=== PATIENT | female | born 1980 | race African-American/Black ===

== ENCOUNTER 2024-01-27 09:30 | Emergency (ER) | payer MEDICAID ==
[~2024-01-27] VITALS: Ht 175.3 cm; Wt 91.0 kg
[2024-01-27 09:45] VITALS: O2SAT 100
[2024-01-27] MEDS ORDERED: IBUP-2029 MT (10:23)
[2024-01-27 10:39] VITALS: BP 164/73; PULSE 76; RESP 18; TEMP 98.1
== END 2024-01-27 10:40 | disposition home or self-care (01) ==
LOC: ER 09:30
DX: S83.8X1A Sprain of other specified parts of right knee, initial encounter (principal); I10 Essential (primary) hypertension; Z98.890 Other specified postprocedural states; Z88.0 Allergy status to penicillin; X58.XXXA Exposure to other specified factors, initial encounter; Y93.89 Activity, other specified; Y92.89 Other specified places as the place of occurrence of the external cause; Y99.8 Other external cause status
CPT/HCPCS: 73562; 99283

== ENCOUNTER 2024-03-25 13:09 | Emergency (ER) | payer MEDICAID ==
[~2024-03-25] VITALS: Ht 177.8 cm; Wt 85.0 kg
[~2024-03-25 13:09] MED LIST: AMLO10TA80 PO; CALC60CR TP; IBUP-2029 MT; LOSA25TA26 PO; TC1U15 TP
[2024-03-25 13:11] VITALS: TEMP 98.7; O2SAT 100
[2024-03-25] MEDS ORDERED: HYDR453.3 TP (14:52)
[2024-03-25] MEDS ORDERED: PHEN51GE9 TP (14:52)
[2024-03-25 15:12] VITALS: BP 161/70; PULSE 70; RESP 15
== END 2024-03-25 15:22 | disposition home or self-care (01) ==
LOC: ER 13:34
DX: K64.4 Residual hemorrhoidal skin tags (principal); I10 Essential (primary) hypertension; I51.9 Heart disease, unspecified; Z88.0 Allergy status to penicillin; Z79.899 Other long term (current) drug therapy
CPT/HCPCS: 99282

== ENCOUNTER 2024-07-28 03:22 | Emergency (ER) | payer MEDICAID ==
[~2024-07-28] VITALS: Ht 175.3 cm; Wt 89.0 kg
[~2024-07-28 03:22] MED LIST changes: +HYDR453.3 TP; +PHEN51GE9 TP
[2024-07-28 03:39] VITALS: O2SAT 100
[2024-07-28 04:52] LABS: CLARITY URINE CLEAR (CLEAR); COLOR URINE YELLOW (YELLOW); GLUCOSE URINE NEGATIVE (NEGATIVE); KETONES URINE NEGATIVE (NEGATIVE); LEUKOCYTE ESTERASE URINE TRACE (NEGATIVE); NITRITE URINE NEGATIVE (NEGATIVE); OCCULT BLOOD URINE NEGATIVE (NEGATIVE); PH URINE 5.5 (4.5-8.0); PROTEIN URINE TRACE (NEGATIVE); SPECIFIC GRAVITY URINE 1.012 (1.005-1.030); UROBILINOGEN URINE 0.2 E.U./dL (0.2-1.0)
[2024-07-28] MEDS ORDERED: KETOROLAC 30MG/ML VIAL IV NR (05:00)
[2024-07-28] MEDS ORDERED: FAMOTIDINE 20MG/2ML VIAL IV NR (05:00)
[2024-07-28 05:31] LABS: SQUAMOUS EPITHELIAL CELL URINE FEW /lpf (RARE/1+)
[2024-07-28 05:33] LABS: BACTERIA URINE NONE SEEN; RBC URINE 0-2 /hpf (0-2); WBC URINE 0-2 /hpf (0-2)
[2024-07-28 06:59] LABS: CARBON DIOXIDE 24 mEq/L (21-32); CHLORIDE 110 mEq/L (98-107); POTASSIUM 3.8 mEq/L (3.5-5.1); SODIUM 140 mEq/L (136-145)
[2024-07-28 07:00] LABS: CALCIUM 9.1 mg/dL (8.7-10.4)
[2024-07-28 07:04] LABS: CREATININE 0.7 mg/dL (0.6-1.0); GLUCOSE 116 mg/dL (70-105)
[2024-07-28 07:05] LABS: ETHANOL BLOOD < 10 mg/dL (<10); UREA NITROGEN BLOOD 7 mg/dL (9-23)
[2024-07-28 07:06] LABS: ALANINE AMINOTRANSFERASE 82 IU/L (10-49); ALBUMIN 4.2 g/dL (3.2-4.8); ASPARTATE AMINOTRANSFERASE 70 IU/L (<34)
[2024-07-28 07:07] LABS: BILIRUBIN TOTAL 1.2 mg/dL (0.1-1.0); PROTEIN TOTAL 7.2 g/dL (6.0-8.3)
[2024-07-28 07:51] LABS: BASOPHILS % 0.3 % (0.0-2.0); HEMATOCRIT. 36.5 % (36.0-48.0); HEMOGLOBIN. 12.1 g/dL (12.0-16.0); LYMPHOCYTES % 21.2 % (20.0-50.0); MEAN CORPUSCULAR HEMOGLOBIN 32.9 pg (28.0-32.0); MEAN CORPUSCULAR HGB CONC 33.2 g/dL (31.0-37.0); MEAN CORPUSCULAR VOLUME 99.2 fL (81.0-99.0); MEAN PLATELET VOLUME 8.5 fl (7.4-10.4); NEUTROPHILS % 68.5 % (40.0-76.0); PLATELET 188 x1000/uL (130-400); RED BLOOD CELL COUNT 3.68 mill/uL (4.2-5.4); RED CELL DISTRIBUTION WIDTH 14.6 % (11.6-14.6); WHITE BLOOD COUNT 5.2 x1000/uL (4.5-11.0)
[2024-07-28 09:13] VITALS: TEMP 37.05852; O2SAT 100
[2024-07-28] MEDS ORDERED: AMLODIPINE 5MG TABLET PO NR (09:45)
[2024-07-28] MEDS ORDERED: HYDRALAZINE 20MG/ML VIAL IV NR (09:45)
[2024-07-28] MEDS: SODIUM CHLORIDE 0.9% 1,000 ML IV ONE (10:04)
[2024-07-28 10:23] VITALS: BP 162/99; PULSE 81; RESP 21
[2024-07-28] MEDS: KETOROLAC 30MG/ML VIAL IV STA (10:23)
[2024-07-28] MEDS: FAMOTIDINE 20MG/2ML VIAL IV ONE (10:31)
[2024-07-28] MEDS ORDERED: ONDANSETRON HCL 4MG/2ML INJ IV NR (10:45)
[2024-07-28] MEDS: ONDANSETRON HCL 4MG/2ML INJ IV STA (11:10)
[2024-07-28] MEDS: ONDANSETRON HCL 4MG/2ML INJ IV NR (11:29)
[2024-07-29 10:18] LABS: *AMPHETAMINES SCREEN URINE NEGATIVE (NEGATIVE); *BARBITURATES SCREEN URINE NEGATIVE (NEGATIVE); *BENZODIAZEPINES SCREEN URINE NEGATIVE (NEGATIVE); *COCAINE SCREEN URINE NEGATIVE (NEGATIVE); METHADONE URINE SCREEN NEGATIVE (NEGATIVE); OPIATES URINE SCREEN PRESUMPTIVE POSITIVE (NEGATIVE); PHENCYCLIDINE URINE SCREEN NEGATIVE (NEGATIVE)
[2024-07-29 10:19] LABS: CANNABINOID URINE SCREEN PRESUMPTIVE POSITIVE (NEGATIVE); ECSTASY MDMA SCREEN URINE NEGATIVE (NEGATIVE)
== END 2024-07-28 11:28 | disposition home or self-care (01) ==
LOC: ER 03:22
DX: R10.13 Epigastric pain (principal); I10 Essential (primary) hypertension; Z79.899 Other long term (current) drug therapy; Z88.0 Allergy status to penicillin
CPT/HCPCS: 80053; 80305; 81003; 80320; 83690; 85025; 36415; 96361; 96374; 96375; 99284; J3490; J1885; J2405; J7030; Z7610 ×4; G0480